=== PATIENT | male | born 2005 | race Caucasian/White ===

== ENCOUNTER 2024-09-23 20:49 | Emergency (ER) | payer BC, SELFPAY ==
[2024-09-23 20:50] VITALS: BP 154/93
--- NOTE | 2024-09-23 21:49 | ED.GENMED ---
History of Present Illness
General
Chief Complaint: Skin Surface Trauma
Source: patient
Exam Limitations: none
Time Seen by Provider: 09/23/24 21:22
History of Present Illness
History of Present Illness:
See MDM
Past History
Past History
ED Past Medical History: None
ED Past Surgical History: None
Social History
Tobacco: Non-smoker
Alcohol: None
Phy Exam
Physical Exam
Physical Exam:
See MDM
Course
Vital Signs
Initial and Last Documented VS:
Initial Vital Signs
Temp Pulse Resp BP Pulse Ox
97.8 F 115 16 154/93 98
09/23/24 20:50 09/23/24 20:50 09/23/24 20:50 09/23/24 20:50 09/23/24 20:50
Last Documented Vital Signs
Temp Pulse Resp BP Pulse Ox
97.8 F 115 16 154/93 98
09/23/24 20:50 09/23/24 20:50 09/23/24 20:50 09/23/24 20:50 09/23/24 20:50
Procedures
Foreign Body Removal-Skin
Wound explored and foreign body removed?: Yes
Foreign body removed using: forceps
Foreign body removed: completely
MDM/Problems Addressed
Differential Diagnosis Includes:
HPI and MDM Narrative:
18-year-old male presenting with foreign body in his right heel. Patient was washing dishes and something fell and broke. He stepped on a piece of glass. Patient has been having trouble removing on his own. He states tetanus is up-to-date
On exam, there is very small and superficial piece of glass seen to his right heel. No active bleeding. #11 blade was used to dislodge the glass and then it was removed with mosquito forceps. Patient tolerated procedure well. Discussed local
wound care
Physical exam
General: Well appearing and non-toxic
HEENT: protecting airway
Neck: appears supple
CV: No evidence of cyanosis
Resp: No accessory muscle use
Abd: Non-distended
Extremities: No deformities
Neuro: alert
Psych: Normal affect
Skin: Small piece of glass noted to right heel
Problems Addressed including Acute and Chronic Conditions affecting care:
1. Foreign body in right heel
Acuity: acute
Prognosis: stable
Details: The piece of glass was removed without difficulty. It measures approximately 2 mm x 1mm. After was removed, the wound was reprobed and no foreign body noted
Differential Diagnosis (but not limited to): Foreign body, abrasion
Testing considered: Foot x-ray
Drug therapy (if applicable): OTC meds, please see d/c instruction regarding Rx drugs
Amount and/or Complexity of Data Reviewed
Clinical info obtained from: Patient
External data reviewed: N/A
Labs I independently reviewed (but not limited to): N/A
Radiology: N/A
Pulse Ox: not hypoxic
EKG independently reviewed: N/A
Senior Java Software Engineer: N/A
Critical Care: N/A
Risk of Complication:
Social Determinants of health: Good social support
Discussed with other providers: N/A
Escalation of Care includes Admit/Obs: After being observed in the Emergency Department, pt stable for discharge.
Occasional wrong word or 'sound a like' substitutions may have occurred due to the inherent limitations of voice recognition software. Read the chart carefully and recognize, using context, where substitutions have occurred.
*Critical Care Note
Total Time (30-74mins, 75-104mins- exclusive of procedures): Not Applicable
ED Attending Note
-
Portions of this chart may have been created with voice recognition software.� Occasional wrong word or��sound alike� substitutions may have occurred due to the inherent limitations of voice recognition software.
Discharge Plan
Departure
Patient Disposition: Home (Routine Discharge)
Date of Disposition: 09/23/24
Time of Disposition: 21:57
Patient with high blood pressure during this ER visit?: Yes
Discharge Problem:
Foreign body foot/toe
Instructions: BLOOD PRESSURE
Referrals:
Leon Apple MD [Family Provider] -
Activity Restrictions/Additional Instructions:
Please look for any evidence of infection. If this occurs, please return immediately.
Interventions
Interventions:
*Risk Screen - Suicide Last Done: 09/23/24 20:50
*General Assessment Last Done: 09/23/24 20:50
*ED COVID-19 Vaccine History Last Done: 09/23/24 20:50
Discharge Date and Time
Print Language: WELSH
== END 2024-09-23 22:23 | disposition home or self-care (01) ==
LOC: EMR 20:49
PROVIDERS: EMERGENCY PHYSICIAN Student in an Organized Health Care Education/Training Program; FAMILY PHYSICIAN Internal Medicine Geriatric Medicine
DX: S91.341A Puncture wound with foreign body, right foot, initial encounter (principal); W25.XXXA Contact with sharp glass, initial encounter; W45.8XXA Other foreign body or object entering through skin, initial encounter
CPT/HCPCS: 10120; 99283